=== PATIENT | female | born 1985 | race Hispanic/Latino ===

== ENCOUNTER 2024-02-02 09:53 | Outpatient (CLI) | payer OTHER, SELFPAY | END 2024-02-02 09:54 | disposition home or self-care (01) | LOC: CSHULT 09:53 | PROVIDERS: ATTEND Nurse Practitioner Family | DX: N92.6 Irregular menstruation, unspecified (principal); N83.02 Follicular cyst of left ovary; N83.01 Follicular cyst of right ovary | CPT/HCPCS: 76856 ==